=== PATIENT | female | born 1995 | race Caucasian/White ===

== ENCOUNTER 2016-11-13 19:35 | Emergency (ER) | payer BC ==
[~2016-11-13] VITALS: Ht 177.8 cm; Wt 68.2 kg
[2016-11-13 19:40] VITALS: TEMP 98.3
[2016-11-13] MEDS ORDERED: PROVENTIL0.09 MG/A1 IH (19:44)
[2016-11-13] MEDS ORDERED: PREDNISONE20 MG PO (20:44)
[2016-11-13 20:53] VITALS: BP 110/78; PULSE 72
== END 2016-11-13 20:54 | disposition home or self-care (01) ==
LOC: COL.ER 19:35
DX: J45.901 Unspecified asthma with (acute) exacerbation (principal)
CPT/HCPCS: J7512

== ENCOUNTER 2016-11-16 14:54 | Emergency (ER) | payer BC ==
[~2016-11-16] VITALS: Ht 177.8 cm; Wt 68.2 kg
[~2016-11-16 14:54] MED LIST: PREDNISONE20 MG PO; PROVENTIL0.09 MG/A1 IH
[2016-11-16 14:55] VITALS: BP 111/74; TEMP 98.5
[2016-11-16 16:52] VITALS: PULSE 72
== END 2016-11-16 16:53 | disposition home or self-care (01) ==
LOC: COL.ER 14:54
DX: J45.909 Unspecified asthma, uncomplicated (principal)